=== PATIENT | female | born 2000 | race Hispanic/Latino ===

== ENCOUNTER 2024-09-12 12:47 | Day surgery (SDC) | payer OTHER ==
[2024-09-12] MEDS ORDERED: hydrALAZINE 20 MG/ML VIAL SLOW IVP PRN (13:42)
[2024-09-12 13:59] LABS: Fetal Membranes Rupture No Membranes Rupture (No Rupture)
[2024-09-12 15:46] LABS: Bilirubin Neg (Negative); Blood, Urine Negative (Negative); Glucose, Urine (Dipstick) Normal (Negative); Ketone, Urine Negative (Negative); Leukocyte 100 (Negative); Nitrite Negative (Negative); Protein, Urine (Dipstick) 30 mg/dl (Neg-Trace)
[2024-09-12 15:51] LABS: Clarity Hazy (Clear)
[2024-09-12 16:10] LABS: Bacteria/HPF 2+ HPF (None Seen); CAUTI Indications for Culture Pregnancy; RBC/HPF 0-3 HPF (0-3); Yeast-Budding Rare HPF (None Seen)
[2024-09-12 16:12] LABS: Mucous/LPF 3+ LPF (<2+); Yeast-Hyphae 1+ HPF (None Seen)
[2024-09-12 16:13] LABS: Urine Culture Reflex Yes Yes
[2024-09-13 01:49] LABS: Chlamydia by PCR, Vaginal Swab Not Detected (NotDetected); GC by PCR, Vaginal Swab Not Detected (NotDetected)
== END 2024-09-12 15:49 | disposition home or self-care (01) ==
LOC: CSHLD/OP 12:47
PROVIDERS: ATTEND Family Medicine
DX: O34.211 Maternal care for low transverse scar from previous cesarean delivery (principal); Z03.71 Encounter for suspected problem with amniotic cavity and membrane ruled out; Z79.899 Other long term (current) drug therapy; Z3A.30 30 weeks gestation of pregnancy
CPT/HCPCS: 81001; 84112; 87077; 87086; 87480; 87491; 87510; 87591; 87660; 99285